=== PATIENT | female | born 1970 | race Two or more races ===

== ENCOUNTER 2022-01-06 22:29 | Emergency (ER) | payer BC, OTHER ==
[~2022-01-06] VITALS: Ht 188 cm; Wt 102.1 kg
[2022-01-06] MEDS ORDERED: ASPirin-EC 325mg tab PO ONE (23:15)
[2022-01-06] MEDS ORDERED: NITROGLYCERIN 0.4 MG SL TAB SL ONE (23:15)
[2022-01-06 23:26] LABS: Basophils # (auto) 0 10 ^3/uL (0-0.2); Eosinophils # (auto) 0.1 10 ^3/uL (0-0.8); Monocytes # (auto) 0.3 10 ^3/uL (0-1.3); Neutrophils # (auto) 3.1 10 ^3/uL (1.6-8.6); Nucleated Red Blood Cells % 0.2 %; Red Cell Distribution Width 15.7 % (11.8-14.3)
[2022-01-06 23:30] LABS: Basophils % (auto) 0.7 % (0.0-2.0); Eosinophils % (auto) 1.7 % (0.0-7.0); Hematocrit 37.3 % (36.0-46.0); Hemoglobin 12.6 g/dL (12.2-16.2); Lymphocytes # (auto) 3.2 10 ^3/uL (0.4-5.4); Lymphocytes % (auto) 47.1 % (10.0-50.0); Mean Corpuscular Hemoglobin 29.9 pg (28.0-32.0); Mean Corpuscular Hgb Conc. 33.7 g/dL (32.0-36.0); Mean Corpuscular Volume 88.7 fL (80.0-100.0); Monocytes % (auto) 4.5 % (0.0-12.0); White Blood Cell 6.7 10^3/uL (4.4-10.8)
[2022-01-06 23:40] LABS: Albumin 2.8 g/dL (3.4-5.0); BUN/Creatinine Ratio 16.7; Calcium 8.2 mg/dL (8.5-10.1); Magnesium 2.3 mg/dL (1.6-2.6); Potassium 3.9 mmol/L (3.5-5.1)
[2022-01-06] MEDS ORDERED: MORPHINE SULFATE INJECTION 2 MG/ML SYRG IV ONE (23:45)
[2022-01-06 23:46] LABS: Bilirubin, Total 0.4 mg/dL (0.2-1.0)
[2022-01-07 01:00] VITALS: BP 137/81
[2022-01-07] MEDS ORDERED: MORPHINE SULFATE 4 MG/ML SYR/VIAL IV PRN (01:15)
[2022-01-07] MEDS ORDERED: HYDROcodone-ACET 5/325MG TAB PO PRN (01:15)
[2022-01-07] MEDS ORDERED: ONDANSETRON HCL 4 MG/2 ML VIAL IV PRN (01:15)
[2022-01-07] MEDS ORDERED: ACETAMINOPHEN 325 MG TAB PO PRN (01:15)
[2022-01-07] MEDS ORDERED: TEMAZEPAM 15 MG CAP PO PRN (01:15)
[2022-01-07] MEDS ORDERED: DOCUSATE SOD 100 MG CAP PO PRN (01:15)
[2022-01-07] MEDS ORDERED: hydrALAZINE HCL 20 MG/ML VL IV PRN (01:30)
[2022-01-07] MEDS ORDERED: SODIUM CHLOR 0.9% PF (SALINE LOCK) 10ML VIAL/SYR IV SCH (06:00)
[2022-01-07] MEDS ORDERED: PROPRANOLOL HCL 20 MG TAB PO SCH (10:00)
[2022-01-07] MEDS ORDERED: FAMOTIDINE (10MG/ML) 2ML VL IV SCH (10:00)
[2022-01-07] MEDS ORDERED: ASPirin 81 mg TAB PO SCH (10:00)
== END 2022-01-07 01:58 | disposition left against medical advice (07) ==
LOC: ER 22:32
DX: R07.89 Other chest pain (principal); E78.5 Hyperlipidemia, unspecified; I10 Essential (primary) hypertension; Z88.0 Allergy status to penicillin; Z91.14 Patient's other noncompliance with medication regimen
CPT/HCPCS: 36415; 71045; 80053; 83690; 83735; 84443; 84484; 85025; 93005; 96374; 99285; J2270